=== PATIENT | female | born 1950 | race Caucasian/White ===

== ENCOUNTER 2016-09-25 06:58 | Day surgery (SDC) | payer MEDICARE, BC ==
[~2016-09-25 06:58] MED LIST: Acetaminophen TAB* 325 MG PO PRN; Buffered Lidocaine 0.9% SYRIN* 5 ML/SYR SYRINGE INTRADERM ONE
[2016-09-25] MEDS ORDERED: fentaNYL* 50 MCG/ML 2 ML VIAL (100 MCG VIAL) ONE (07:54)
[2016-09-25] MEDS ORDERED: Midazolam* 1 MG/ML 2 ML VIAL (2 MG) ONE (07:54)
[2016-09-25 09:22] VITALS: BP 116/60
[2016-09-25] MEDS ORDERED: Cyclopentolate 1% OPTH.SOL* 2 ML BTL ONE (10:30)
[2016-09-25] MEDS ORDERED: Neomycin/Polymy/Dex OPTH.SUSP* MAXITROL 0.1% 5 ML ONE (10:30)
[2016-09-25] MEDS ORDERED: Phenylephrine 2.5% OPTH.SOL* 2 ML BTL ONE (10:30)
[2016-09-25] MEDS ORDERED: Lidocaine 2% MPF* 2 ML VIAL ONE (10:30)
[2016-09-25] MEDS ORDERED: Flurbiprofen 0.03% OPTH.SOL* 2.5 ML BTL ONE (10:30)
[2016-09-25] MEDS ORDERED: acetaZOLAMIDE TAB* 250 MG ONE (10:30)
[2016-09-25] MEDS ORDERED: Povidone Iodine 5% OPTH* 30 ML BTL ONE (10:30)
[2016-09-25] MEDS ORDERED: Lidocaine 2% EPI 1:200000 MPF* 20 ML VIAL ONE (10:30)
[2016-09-25] MEDS ORDERED: Proparacaine 0.5% OPHTH.SOL* 15 ML BTL ONE (10:30)
--- NOTE | 2016-09-25 15:23 | OP ---
DATE OF OPERATION: 09/25/16 - [facility] DATE OF : 46 SURGEON: Daniel Chandra M.D. PREOPERATIVE DIAGNOSIS: Cataract, right eye. POSTOPERATIVE DIAGNOSIS: Cataract, right eye. OPERATIVE PROCEDURE: Phacoemulsification, right eye with IOL. DESCRIPTION OF PROCEDURE: The patient was brought to the operating room after being given 1/2% Alcaine with epinephrine drops in the preoperative area. The eye was prepped and draped in the usual sterile fashion. Sterile drape and eyelid speculum were placed. Again, topical 1/2% Alcaine with epinephrine was given. A paracentesis incision was made at the 9 o'clock position with the No.75 blade. Clear cornea incision 2.2 x 2.2-mm was created at the 12 o'clock position starting at the anterior limbus using the 2.2-mm keratome. The anterior chamber was irrigated with 0.4 mL of 1% non-preservative intracameral lidocaine and filled with DisCoVisc. A capsulorrhexis was completed using the cystotome and the Utrata forceps. Hydrodissection was performed with balanced salt solution. The lens nucleus was removed with the Phacoemulsification handpiece without incident. Cortex was removed with the irrigation-aspiration handpiece. The capsular bag was re-inflated using DisCoVisc and an [id number] implant was inserted with the shooter. The irrigation-aspiration handpiece was used to remove all residual DisCoVisc. The eye was refilled with balanced salt solution and the wound checked and found to be watertight. Topical Maxitrol drops were given. [id number]/[facility] #: [id number] MTDD
== END 2016-09-25 09:35 | disposition home or self-care (01) ==
LOC: OREAST 06:58
PROVIDERS: ATTEND Specialist
DX: H25.811 Combined forms of age-related cataract, right eye (principal); Z79.82 Long term (current) use of aspirin; E11.9 Type 2 diabetes mellitus without complications; E03.9 Hypothyroidism, unspecified; Z88.0 Allergy status to penicillin
CPT/HCPCS: A9270-GY; J2250; J3010; V2632

== ENCOUNTER 2016-10-02 07:17 | Day surgery (SDC) | payer MEDICARE, BC ==
[2016-10-02] MEDS ORDERED: Midazolam* 1 MG/ML 2 ML VIAL (2 MG) ONE ×2 (08:45→09:22)
[2016-10-02] MEDS ORDERED: fentaNYL* 50 MCG/ML 2 ML VIAL (100 MCG VIAL) ONE (08:45)
--- NOTE | 2016-10-02 09:45 | OP ---
DATE OF OPERATION: 10/02/2016 - [facility] DATE OF : 1950. SURGEON: Daniel Chandra M.D. PREOPERATIVE DIAGNOSIS: Cataract left eye. POSTOPERATIVE DIAGNOSIS: Cataract left eye. OPERATIVE PROCEDURE: Phacoemulsification left eye with IOL. DESCRIPTION OF PROCEDURE: The patient was brought to the operating room after being given 1/2% Alcaine with epinephrine drops in the preoperative area. The eye was prepped and draped in the usual sterile fashion. Sterile drape and eyelid speculum were placed. Again, topical 1/2% Alcaine with epinephrine was given. A paracentesis incision was made at the 3 o'clock position with the No.75 blade. Clear cornea incision 2.2 x 2.2-mm was created at the 6 o'clock position starting at the anterior limbus using the 2.2-mm keratome. The anterior chamber was irrigated with 0.4 mL of 1% non-preservative intracameral lidocaine and filled with DisCoVisc. A capsulorrhexis was completed using the cystotome and the Utrata forceps. Hydrodissection was performed with balanced salt solution. The lens nucleus was removed with the Phacoemulsification handpiece without incident. Cortex was removed with the irrigation-aspiration handpiece. The capsular bag was re-inflated using DisCoVisc and an [id number] 20.5 implant was inserted with the shooter. The irrigation-aspiration handpiece was used to remove all residual DisCoVisc. The eye was refilled with balanced salt solution and the wound checked and found to be watertight. Topical Maxitrol drops were given. [id number]/[facility] #: [id number] [facility]
[2016-10-02 09:50] VITALS: BP 118/53
[2016-10-02] MEDS ORDERED: Neomycin/Polymy/Dex OPTH.SUSP* MAXITROL 0.1% 5 ML ONE (13:49)
[2016-10-02] MEDS ORDERED: Lidocaine 2% EPI 1:200000 MPF* 20 ML VIAL ONE (13:49)
[2016-10-02] MEDS ORDERED: Povidone Iodine 5% OPTH* 30 ML BTL ONE (13:49)
[2016-10-02] MEDS ORDERED: Proparacaine 0.5% OPHTH.SOL* 15 ML BTL ONE (13:49)
[2016-10-02] MEDS ORDERED: Phenylephrine 2.5% OPTH.SOL* 2 ML BTL ONE (13:49)
[2016-10-02] MEDS ORDERED: Lidocaine 1% MPF* 2 ML VIAL ONE (13:49)
[2016-10-02] MEDS ORDERED: Flurbiprofen 0.03% OPTH.SOL* 2.5 ML BTL ONE (13:49)
[2016-10-02] MEDS ORDERED: Buffered Lidocaine 0.9% SYRIN* 5 ML/SYR SYRINGE ONE (13:49)
[2016-10-02] MEDS ORDERED: Cyclopentolate 1% OPTH.SOL* 2 ML BTL ONE (13:49)
[2016-10-02] MEDS ORDERED: Lidocaine 1% MPF wEPI 200,000* 30 ML SDV ONE (13:49)
[2016-10-02] MEDS ORDERED: acetaZOLAMIDE TAB* 250 MG ONE (13:49)
== END 2016-10-02 09:46 | disposition home or self-care (01) ==
LOC: OREAST 07:17
PROVIDERS: ATTEND Specialist
DX: H25.812 Combined forms of age-related cataract, left eye (principal); Z79.82 Long term (current) use of aspirin; Z79.4 Long term (current) use of insulin; Z88.0 Allergy status to penicillin; E11.9 Type 2 diabetes mellitus without complications; E03.9 Hypothyroidism, unspecified
CPT/HCPCS: A9270-GY; J2001; J2250; J3010; V2632

== ENCOUNTER 2017-03-18 06:29 | Observation (INO) | payer MEDICARE, BC ==
[2017-03-18 07:52] LABS: Hematocrit 39 % (35-47); Hemoglobin 12.6 g/dl (12.0-16.0); Mean Corpuscular HGB Conc 33 g/dl (31-36); Mean Corpuscular Hemoglobin 27 pg (27-31); Mean Corpuscular Volume 84 fL (80-97); Mean Platelet Volume 9 um3 (7.4-10.4); Red Blood Count 4.59 10^6/ul (4.0-5.4); Red Cell Distribution Width 14 % (10.5-15); White Blood Count 6.7 10^3/ul (3.5-10.8)
[2017-03-18 08:11] LABS: Albumin 3.7 g/dL (3.2-5.2); BUN/Creatinine Ratio 32.3 (8-20); Calcium 9.9 mg/dL (8.6-10.3); EGFR African American 116.6 (>60); EGFR Non-African American 90.6 (>60); Globulin 2.5 g/dL (2-4); Magnesium 2.1 mg/dL (1.9-2.7); Potassium 4.2 mmol/L (3.5-5.0); Total Bilirubin 0.3 mg/dL (0.2-1.0); Total Protein 6.2 g/dL (6.4-8.9)
--- NOTE | 2017-03-18 08:23 | ED ---
Christopher Antunez Benjamin, scribed for Manuel Alford MD on 03/18/17 at 0640 . HPI Chest Pain - HPI Summary HPI Summary: 66yo female transferred from [facility] for CP. Pt states having pounding heartbeats in the past few days, but this morning, pt had pounding heartbeats with left shoulder pain. Pt was given nitroglycerin at [facility], which helped with pts pain. Deep breaths bothers her chest. Pt denies leg pain or swelling. No recent travels. Negative for HTN, CAD, or CA. FHx negative for CAD. Pt is diabetic. Pt takes baby ASA daily. 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 - History of Current Complaint Hx Obtained From: Patient Onset/Duration: Started Hours Ago, Still Present Timing: Constant Initial Severity: Moderate Current Severity: Mild Pain Intensity: 0 Pain Scale Used: 0-10 Numeric Chest Pain Location: Diffuse Chest Pain Radiates: Yes Chest Pain Radiates To:: Shoulder - left shoulder Aggravating Factor(s): Deep Breaths Alleviating Factor(s): Nothing Associated Signs and Symptoms: Positive: Palpitations - pounding heart beats. Negative: Shortness of Breath, Fever, Nausea, Vomiting - Allergy/Home Medications Allergies/Adverse Reactions: Allergies Allergy/AdvReac Type Severity Reaction Status Date / Time Penicillins [PCN] Allergy SWOLLEN Verified 10/02/16 08:16 RASH CASHEWS Allergy INSIDE OF Uncoded 10/02/16 08:16 MOUTH-RASH, LIPS SWELL MANGOS Allergy INSIDE OF Uncoded 10/02/16 08:16 MOUTH- RASH, LIPS SWELL Home Medications: Home Medications Oxybutynin Chloride [Oxybutynin Chloride ER] 5 mg PO QAM 03/18/17 [History Confirmed 03/18/17] PMH/Surg Hx/FS Hx/Imm Hx Endocrine/Hematology History: Reports: Hx Diabetes - INSULIN DEPENDENT, Hx Thyroid Disease - ON MEDICATION FOR Cardiovascular History: Denies: Hx Hypertension Musculoskeletal History: Reports: Hx Bursitis - RIGHT HIP Sensory History: Reports: Hx Cataracts - BILATERAL, Hx Contacts or Glasses - GLASSES Denies: Hx Hearing Aid Opthamlomology History: Reports: Hx Cataracts - BILATERAL, Hx Contacts or Glasses - GLASSES - Surgical History Surgery Procedure, Year, and Place: 2 [id number]. TONSILLECTOMY- A CHILD Hx Anesthesia Reactions: No Infectious Disease History: No Infectious Disease History: Denies: Traveled Outside the [place] in Last 30 Days - Family History Known Family History: Positive: Diabetes Negative: Cardiac Disease, Hypertension - Social History Alcohol Use: Daily Alcohol Amount: 1 GLASS OF WINE DAILY Substance Use Type: Reports: Marijuana Substance Use Comment - Amount & Last Used: LAST USED LAST NIGHT Smoking Status (MU): Former Smoker Amount Used/How Often: < 1PPD X 5 YEARS Review of Systems Constitutional: Negative Negative: Fever Eyes: Negative ENT: Negative Positive: Palpitations, Chest Pain Respiratory: Negative Gastrointestinal: Negative Negative: Abdominal Pain, Vomiting, Diarrhea, Nausea Genitourinary: Negative Musculoskeletal: Negative Skin: Negative Neurological: Negative Psychological: Normal All Other Systems Reviewed And Are Negative: Yes Physical Exam - Summary Physical Exam Summary: Appearance: Well-appearing, Well-nourished Skin: Warm Eyes: Normal ENT: Normal Neck: Supple, nontender Respiratory: Clear to auscultation Cardiovascular: Normal, no murmurs Abdomen: Soft, nontender Bowel: Present Musculoskeletal: Normal, Strength/ROM Intact. Normal peripheral pulses in all four extremities. Neurological: Normal, A&Ox3 Psychiatric: Normal Triage Information Reviewed: Yes Vital Signs On Initial Exam: Initial Vitals Temp Pulse Resp BP Pulse Ox 97.3 F 84 14 133/78 99 03/18/17 06:30 03/18/17 06:30 03/18/17 06:30 03/18/17 06:30 03/18/17 06:30 Vital Signs Reviewed: Yes Diagnostics - Vital Signs Vital Signs Temp Pulse Resp BP Pulse Ox 03/18/17 06:30 97.3 F 84 14 133/78 99 - Laboratory Lab Results: Lab Results 03/18/17 03/18/17 03/18/17 Range/Units 07:31 07:31 07:31 WBC 6.7 (3.5-10.8) 10^3/ul RBC 4.59 (4.0-5.4) 10^6/ul Hgb 12.6 (12.0-16.0) g/dl Hct 39 (35-47) % MCV 84 (80-97) fL MCH 27 (27-31) pg MCHC 33 (31-36) g/dl RDW 14 (10.5-15) % Plt Count 213 (150-450) 10^3/ul MPV 9 (7.4-10.4) um3 Neut % (Auto) 77.1 (38-83) % Lymph % (Auto) 14.5 L (25-47) % Tate % (Auto) 6.6 (1-9) % Eos % (Auto) 0.9 (0-6) % Baso % (Auto) 0.9 (0-2) % Absolute Neuts (auto) 5.2 (1.5-7.7) 10^3/ul Absolute Lymphs (auto) 1.0 (1.0-4.8) 10^3/ul Absolute Monos (auto) 0.4 (0-0.8) 10^3/ul Absolute Eos (auto) 0.1 (0-0.6) 10^3/ul Absolute Basos (auto) 0.1 (0-0.2) 10^3/ul Absolute Nucleated RBC 0 10^3/ul Nucleated RBC % 0 INR (Anticoag Therapy) 0.82 (0.77-1.02) APTT 25.8 L (26.0-36.3) seconds Sodium 137 (133-145) mmol/L Potassium 4.2 (3.5-5.0) mmol/L Chloride 105 (101-111) mmol/L Carbon Dioxide 27 (22-32) mmol/L Anion Gap 5 (2-11) mmol/L BUN 21 (6-24) mg/dL Creatinine 0.65 (0.51-0.95) mg/dL Est GFR ( Amer) 116.6 (>60) Est GFR (Non-Af Amer) 90.6 (>60) BUN/Creatinine Ratio 32.3 H (8-20) Glucose 180 H (70-100) mg/dL Calcium 9.9 (8.6-10.3) mg/dL Magnesium 2.1 (1.9-2.7) mg/dL Total Bilirubin 0.30 (0.2-1.0) mg/dL AST 23 (13-39) U/L ALT 24 (7-52) U/L Alkaline Phosphatase 42 (34-104) U/L Troponin I 0.00 (<0.04) ng/mL Total Protein 6.2 L (6.4-8.9) g/dL Albumin 3.7 (3.2-5.2) g/dL Globulin 2.5 (2-4) g/dL Albumin/Globulin Ratio 1.5 (1-3) TSH Pending Thyroxine (T4) Pending Result Diagrams: 03/18/17 07:31 12 07:31 Lab Statement: Any lab studies that have been ordered have been reviewed, and results considered in the medical decision making process. - EKG 0659. Cardiac Rate: NL EKG Rhythm: Sinus Rhythm - 65bpm Ectopy: PACs Chest Pain Course/Dx - Diagnoses Provider Diagnoses: Shortness of breath Discharge - Discharge Plan Condition: Stable Disposition: OTHER Discharge Disposition Comment: observation Referrals: Monster Bowser MD [Primary Care Provider] - The documentation as recorded by the Christopher morales Benjamin accurately reflects the service I personally performed and the decisions made by me, Manuel Alford MD.
[2017-03-18 08:34] LABS: T4 6.45 mcg/mL (6.09-12.23)
[2017-03-18 08:37] LABS: TSH (Thyroid Stimulating Horm) 1.59 mcIU/mL (0.34-5.60)
[2017-03-18] MEDS ORDERED: Levothyroxine TAB* 175 MCG TAB PO SCH (10:00)
--- NOTE | 2017-03-18 13:06 | HP ---
CC: Dr. Bowser. * HISTORY AND PHYSICAL: DATE OF ADMISSION: 03/18/17 PRIMARY CARE PROVIDER: Dr. Bowser. CHIEF COMPLAINT: Left shoulder pain. HISTORY OF PRESENT ILLNESS: Ms. Álvarez is a 66-year-old female with a history of type 2 diabetes, hypothyroidism, and urinary incontinence, who presented initially to [facility] with complaints of left shoulder pain. The patient states, however, over the last several weeks, she has had multiple episodes at night when she is lying in bed, ready to go to sleep, when she feels as if her heart is pounding. She describes it as if she had a blood pressure cuff inflated around her arm and how she can feel a very heavy pulsation. These had been going on and would last for approximately 30 minutes to an hour at a time. However, she had no pain associated with this. Last evening, however, at approximately 1 o'clock in the morning, she noted that her left shoulder hurt. The patient's is a nurse and he checked her pulse and noted that her pulse had previously been normal during these episodes; however, last night some-thing seemed slightly off, she was unable to tell me what he noted, however. She then decided to go to the emergency room at [facility] where she received 2 nitroglycerin and an inch of nitro paste with relief of the left shoulder pain. The patient does state that the symptoms appear to be worse when she is lying on her left side. Otherwise nothing seem to make it better or worse. The patient is an active lady who typically will jog in the morning. However, lately she states she has not been doing that as her treadmill is broken and the weather has been cold. 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 She did note that during these episodes she would feel as if it was hard to take a deep breath in. PAST MEDICAL HISTORY: 1. Type 2 diabetes. 2. Hypothyroidism. 3. Urinary incontinence. PAST SURGICAL HISTORY: 1. Bilateral cataract extraction. 2. x2. 3. Tonsillectomy. MEDICATIONS: 1. Regular insulin 3 units subcutaneous twice daily. 2. Insulin NPH 6 units subcutaneous daily. 3. Oxybutynin 5 mg p.o. daily. 4. Levothyroxine 175 mcg p.o. Friday, Friday, Friday, , and Friday. ALLERGIES: PENICILLIN. FAMILY HISTORY: Mom at the age of 96. She had dementia. Dad at the age of 80. He had prostate cancer. There is no family history of coronary artery disease. SOCIAL HISTORY: The patient states that she smoked for a very short time while in under graduate school; however, has been a nonsmoker since. She drinks approximately 1 glass of wine per day. 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 She is . She has two children. Her , Gallo, is her healthcare proxy. REVIEW OF SYSTEMS: A complete 11-system review of systems was obtained. Pertinent positives and negatives are as per HPI and otherwise negative. PHYSICAL EXAMINATION GENERAL: The patient is a well-developed, middle-aged female, sitting up on the stretcher, in no acute distress. VITAL SIGNS: Blood pressure 121/66, pulse 85, respirations 14, temp 97.3, O2 sat 99% on room air. HEENT: Pupils are equal; they are round; they react to light. Extraocular muscles are intact. Oropharynx is clear. Oral mucosa is moist. There is no submandibular, cervical or supraclavicular adenopathy. Thyroid is not enlarged. No thyroid nodules are noted. PULMONARY: Lungs are clear to auscultation bilaterally. CARDIAC: Normal S1, S2. Regular rate and rhythm. I do not appreciate any murmurs. There is no lower extremity edema. ABDOMEN: Bowel sounds present. Abdomen is soft, nontender, nondistended. MUSCULOSKELETAL: There is no cyanosis or clubbing of the digits. There is full active range of motion of all 4 extremities. SKIN: Warm and dry. There are no rashes. NEUROLOGIC: Cranial nerves II through XII are grossly intact. Sensation is intact to light touch throughout. Strength is 5/5 and symmetric in both upper and lower extremities bilaterally. PSYCH: The patient is alert. She is oriented x3. Affect appears appropriate. DIAGNOSTIC STUDIES/LAB DATA: WBC 6.7, hemoglobin 12.6, hematocrit 39, platelets 213. INR is 0.82. Sodium 137, potassium 4.2, chloride 105, CO2 of 27 , BUN 21, creatinine 0.65, glucose 180, calcium 9.9, magnesium 2.1, bilirubin 0.3, AST 23, ALT 24, alk phos 42. Troponin 0. Albumin 3.7. TSH 1.59. EKG reveals normal sinus rhythm, without any acute ST-T wave abnormalities. ASSESSMENT AND PLAN: Ms. Álvarez is a 66-year-old female with a history of type 2 diabetes and hypothyroidism, who presented to emergency room at [facility] with complaints of left shoulder pain, in association with feeling as if her heart was pounding, and was transferred to [facility] for further evaluation and management. 1. Left shoulder pain. The patient in general is very active lady. She does not get any chest pain with fairly strenuous activities. However, given the fact that she developed left shoulder pain with the heart pounding episodes, I feel that admitting her to obtain a stress test is the best option at this point. The patient reluctantly agrees to being admitted under observation to have the stress test obtained. She has already had 2 troponins that were negative. The first being at [facility] with a level of 0.004. The patient's EKG is normal. I have a low suspicion that the patient's stress test will be abnormal. However, if it is, Cardiology consultation will be requested. 2. Type 2 diabetes. We will go ahead and check a hemoglobin A1c. The patient will be maintained on her usual doses of insulin. 3. Hypothyroidism. The patient will continue on her usual dose of Synthroid. Her TSH has been in good range. 4. Urinary incontinence. Continue oxybutynin. 5. DVT prophylaxis. According to the Adult Thrombosis Prophylaxis Risk Factor Assessment Guide, the patient has a total risk factor score of 2 making her moderate risk. She will be placed on heparin 5000 units subcutaneous q.12 hours. 6. Code status is full and again the patient indicates that her , Gallo, is her healthcare proxy. TIME SPENT: Sixty-five minutes were spent admitting this patient. [id number]/[facility] #: [id number] [place]
--- NOTE | 2017-03-18 14:41 | RAD ---
HISTORY: Chest pain COMPARISONS: None TECHNIQUE: A 1 day stress/rest myocardial perfusion study was performed, with exercise stress. The exercise portion was performed using the Nitish protocol, for a total METs of 10.1. The stress portion was monitored by Dr. Butler. Gated SPECT imaging was performed, with CT-based attenuation correction DOSE: Stress: Technetium 99m tetrofosmin, 25.21 millicuries, injected at 1:32 PM on March 18, 2017 Rest: Technetium 99m tetrofosmin, 10.11 millicuries, injected at 11:50 AM on March 18, 2017 Pharmacologic agent: None FINDINGS: CARDIAC MONITORING: Peak heart rate of 229 bpm, 151% of predicted EF: 81% TID: 1.04 MOTION: Normal motion, with normal wall thickening. PERFUSION: There is a small partially reversible perfusion defect of the distal lateral wall towards the apex. OTHER: None IMPRESSION: SMALL PARTIALLY REVERSIBLE PERFUSION DEFECT OF THE DISTAL LATERAL WALL TOWARDS THE APEX ASSESSMENT: LOW RISK. Based on imaging criteria from ACC/AHA 2002. Guideline Update for the Management of Patient's with Chronic Stable Angina, table 23. Noninvasive Risk Stratification. CPT II Codes: 0610O0T
[2017-03-18 16:11] VITALS: BP 116/64
[2017-03-18] MEDS ORDERED: Heparin VIAL(*) 5000 UNITS/ML VIAL (FIVE THOUSAND) SUBCUT SCH (21:00)
[2017-03-18] MEDS ORDERED: Insulin REGULAR(*) 1 UNITS UNIT SUBCUT SCH (21:00)
--- NOTE | 2017-03-19 06:14 | DS ---
CC: Dr. Bowser * DISCHARGE SUMMARY: DATE OF ADMISSION: 03/18/17 DATE OF DISCHARGE: 03/18/17 HOSPITAL COURSE: This is a brief discharge summary on Tracey Álvarez who was admitted earlier on 03/18/17 with complaints of left shoulder pain. The patient was ruled out for an acute coronary syndrome and underwent an exercise nuclear stress test, which was read by the radiologist as having a small partially reversible perfusion defect of the distal lateral wall towards the apex. I did speak with the on-call school administrator to review the nuclear images and it was felt that it was essentially a normal nuclear stress test. At this point, the patient is stable and ready for discharge home. Medications on discharge are the same as on admission. FOLLOW-UP CONCERNS: The patient is being discharged to home today, 03/18/17. ACTIVITY LEVEL: As tolerated. DIET: Regular. CONDITION: Stable. DISCHARGE INSTRUCTION: The patient should follow up with Dr. Bowser in next one to two weeks. TIME SPENT: Twenty minutes was spent discharging this patient. [id number]/[facility] #: [id number] [place]
[2017-03-19] MEDS ORDERED: Oxybutynin XL TAB* 5 MG PO SCH (09:00)
[2017-03-19] MEDS ORDERED: Insulin NPH(*) 1 UNITS UNIT SUBCUT SCH (09:00)
== END 2017-03-18 16:34 | disposition home or self-care (01) ==
LOC: ED 06:29 → MEDTELE 08:50
PROVIDERS: ADMIT Hospitalist; ATTEND Hospitalist
DX: M25.512 Pain in left shoulder (principal); E11.9 Type 2 diabetes mellitus without complications; E03.9 Hypothyroidism, unspecified; R32 Unspecified urinary incontinence; R06.02 Shortness of breath; Z79.4 Long term (current) use of insulin; Z79.899 Other long term (current) drug therapy; Z88.0 Allergy status to penicillin; Z87.891 Personal history of nicotine dependence
CPT/HCPCS: 36415; 78452; 80053; 83036; 83735; 84436; 84443; 84484; 85025; 85610; 85730; 86850; 86900; 86901; 93005; 93017; 99283; A9270-GY; A9502; G0378